=== PATIENT | male | born 2000 | race Hispanic/Latino ===

== ENCOUNTER 2019-04-01 11:30 | Outpatient (AMBR) | payer MEDICAID, SELFPAY ==
--- NOTE | 2019-03-25 13:04 | PT.ODAYNRPT ---
PT Outpatient Daily Note Date of Service: March 25, 2019 OP Daily Note Visit Reasons: left shoulder Outpatient Physical Therapy Treatment Date: 03/25/19 Subjective: pt states he was able to sleep better since last visit but still have moments of pain. Objective: see flow sheet. Assessment: pt needed cuing to correct hand placement with some exercises but other than that he maintained good form. he was able to understand the form and muscle activation. used 2# with sidelying in which he did not c/o increased pain. he was able to go through the exercise without resting. palpated good muscle contraction of the mid back and L shoulder. added body blade exercise in which he had difficulty with isometric contraction of the biceps but did better with the shoulder joint instead. muscle fatigue after that last exercise. Plan: continue POC per PT. Length of Time (minutes) of Treatment: 30 Minutes Office Procedures PT Procedures PT Date of Service: 03/25/19 Therapeutic Exercise 30 minutes: Yes
--- NOTE | 2019-03-27 14:58 | PT.ODAYNRPT ---
PT Outpatient Daily Note Date of Service: March 27, 2019 OP Daily Note Visit Reasons: left shoulder Outpatient Physical Therapy Treatment Date: 03/27/19 Subjective: Pt mention that his shoulder feels much better. Pt can perform overhead motions with less pain. Pt was pretty sore after last treatment session but ice after PT session helped Objective: Please see flow chart for list of ther ex performed Assessment: tolerate exercises with minimal pain Plan: Continue with PT Length of Time (minutes) of Treatment: 30 Minutes Office Procedures PT Procedures PT Date of Service: 03/25/19 Therapeutic Exercise 30 minutes: Yes PT Procedures PT Date of Service: 03/27/19 Therapeutic Exercise 30 minutes: Yes
--- NOTE | 2019-04-01 12:50 | PT.ODS1RPT ---
PT OP Progress/Discharge Note Date of Service: April 01, 2019 Progress Note/DC Note Progress Note/Discharge Note: DC Note Patient Information Visit Reasons: left shoulder Medical Diagnosis: M67.814 Treatment Dx #1: Left Shoulder Pain Treatment Dx #2: Left Shoulder Weakness Service Continue Service or Discharge: Discharge Discharge Date: 04/01/19 Status Subjective: Pt mention that his shoulder feels better but still notice some ache at the location of the tear. Pt still has difficulty with loading the shoulder, working out, lifting overhead, and recreational activities. Pt will be leaving to [place] soon and will like to stop PT and follow up with PCP. Objective: Left Shoulder AROM: all motions are WNL with end range pain in all plane Left Shoulder PROM: all motions are WNL with end range pain in all plane Left Shoulder MMTs: grossly 3+/5 Left Scapula MMTs: grossly 3/5 Skin Toggler Strength L: 40 lbs R: 70 lbs Assessment: Pt demonstrate improvement with shoulder mobility and strength, however, continues to have lateral shoulder pain with certain activities or ADLs. Pt will be release from physical therapy per Pt's request and did not meet set goals in therapy. Pt was instructed on HEP last session and educated to continue to maintain overall mobility. Pt performed all exercises safely, thank you for your referrals. Plan: D/C home with HEP and follow up with PCP Office Procedures PT Procedures PT Date of Service: 03/25/19 Therapeutic Exercise 30 minutes: Yes PT Procedures PT Date of Service: 03/27/19 Therapeutic Exercise 30 minutes: Yes PT Procedures PT Date of Service: 04/01/19 Therapeutic Exercise 30 minutes: Yes
== END 2019-04-01 13:15 | disposition home or self-care (01) ==
PROVIDERS: PCP Family Medicine; Referring Provider Family Medicine; Visit Provider Physician Assistant
DX: M67.814 Other specified disorders of tendon, left shoulder (principal); M25.512 Pain in left shoulder; R53.1 Weakness
CPT/HCPCS: 97110